=== PATIENT | female | born 1970 | race Caucasian/White ===

== ENCOUNTER 2017-09-28 23:28 | Emergency (ER) | payer MEDICAID, OTHER ==
[2017-09-29] MEDS: LIDOCAINE 1% (MDV) 20 ML INJ SC (00:30)
[2017-09-29 00:41] LABS: URINE PH (Dip) POC 6.5 (5.0-8.5)
[2017-09-29 00:41] LABS: URINE BLOOD (Dip) POC Negative (NEGATIVE); URINE GLUCOSE (Dip) POC Negative (NEGATIVE); URINE KETONES (Dip) POC Negative (NEGATIVE); URINE LEUKOCYTE EST (Dip) POC Trace (NEGATIVE); URINE NITRITE (Dip) POC Negative (NEGATIVE); URINE TOTAL PROTEIN POC Negative (NEGATIVE)
[2017-09-29] MEDS: HYDROCODONE/APAP (5/325) TAB PO (00:58)
== END 2017-09-29 04:10 | disposition home or self-care (01) ==
LOC: FTE 23:28
DX: L02.214 Cutaneous abscess of groin (principal); R40.2412 Glasgow coma scale score 13-15, at arrival to emergency department; R10.2 Pelvic and perineal pain
CPT/HCPCS: 10061; 81003; 81025; 99284-25

== ENCOUNTER 2017-09-29 06:39 | Emergency (ER) | payer MEDICAID ==
[2017-09-29] MEDS: CEPHALEXIN 500 MG CAP PO (07:14)
[2017-09-29] MEDS: TRIMETHOPRIM/SULFAMETHOX (DS) TAB PO (07:14)
== END 2017-09-29 07:51 | disposition home or self-care (01) ==
LOC: FTE 06:39
DX: R52 Pain, unspecified (principal); R50.9 Fever, unspecified; L53.9 Erythematous condition, unspecified; Z48.01 Encounter for change or removal of surgical wound dressing
CPT/HCPCS: 99284; Z7502

== ENCOUNTER 2017-10-01 15:38 | Emergency (ER) | payer MEDICAID | END 2017-10-01 16:53 | disposition home or self-care (01) | LOC: FTE 15:38 | DX: N76.0 Acute vaginitis (principal) | CPT/HCPCS: 99282; Z7502 ==

== ENCOUNTER 2018-07-12 20:11 | Emergency (ER) | payer OTHER, MEDICAID ==
[2018-07-12] MEDS ORDERED: LIDOCAINE 1% (MPF) 5 ML VIAL INJ (22:30)
[2018-07-12] MEDS: LIDOCAINE 1% (MDV) 20 ML INJ SC (22:36)
== END 2018-07-13 00:12 | disposition home or self-care (01) ==
LOC: FTE 07-13 00:12
DX: L02.214 Cutaneous abscess of groin (principal)
CPT/HCPCS: 10060; 99283-25